=== PATIENT | male | born 1955 | race Caucasian/White ===

== ENCOUNTER 2023-11-10 13:50 | Inpatient (IN) | payer MEDICARE, SELFPAY ==
[2023-11-10] VITALS (10 sets, daily range): BP systolic 98–143; BP diastolic 42–115; BMI 27.9; BMI 29.0
--- NOTE | 2023-11-10 06:03 | ED.GENMED ---
History of Present Illness
General
Chief Complaint: Abdominal Symptoms
Source: patient and spouse
Exam Limitations: none
Time Seen by Provider: 11/10/23 05:57
Travel History
Have you had any contact with someone who has COVID-19?: No
Do you have any symptoms of coronavirus? Fever > 100 degrees, chills, cough, shortness of breath, sore throat, loss of taste or smell, muscle aches, or headache?: No
History of Present Illness
History of Present Illness:
68-year-old male presents with relatively sudden onset of mid upper abdominal discomfort nausea vomiting and diarrhea since about midnight. [place] fine yesterday. Was around children visiting that may have been ill with a GI bug. No unusual food
ingestion. No travel history. No recent antibiotics. Diarrhea about every hour. Watery. No blood or mucus. No radiation of discomfort to the back or chest. No shortness of breath. No chest pain.
Past History
Past History
ED Past Medical History: Hypercholesterolemia
ED Past Surgical History: None
Social History
Tobacco: Non-smoker
Personal:
Review of Systems
Review of Systems
All Other Systems: Not applicable
Constitutional: Denies fever
Cardiac: Reports syncope (Near syncope); Denies chest pain
Phy Exam
Physical Exam
Physical Exam:
GENERAL: Alert and oriented in no apparent distress. Nontoxic but generally weak and appears uncomfortable
EYE: Orbits normal.
NECK: Supple. Nontender
CARDIAC: Regular rate and rhythm without any obvious murmurs.
LUNGS: Clear breath sounds,normal
ABDOMEN: Soft, bowel sounds present. Minimal epigastric tenderness. No rebound or guarding no mass or hernia
NEUROLOGICAL: Alert and oriented , grossly non-focal
SKIN: Warm and dry, no rash or lesion, no discoloration, skin intact.
MUSCULOSKELETAL: No edema,no deformity.Good color
PSYCH: Normal and appropriate interaction..
Course
Orders/Labs/Results
Orders:
Orders
11/10/23 05:18
Electrocardiogram (*1) Urgent
Reason for Study: Abdominal Pain
11/10/23 05:19
EKG- Treatment ONCE
11/10/23 05:52
Complete Blood Count/With Diff Urgent
Comprehensive Metabolic Panel Urgent
Lipase Urgent
11/10/23 06:04
CT Abd/Pel (IV only)-DH only Urgent
Comment:
Reason For Exam: Sudden mid abdominal pain
Cardiac Monitoring- Treatment ONCE
IV Insert/Care/Rem.- Treatment PRN
0.9% Sodium Chloride 1000 ml [Nss] 1,000 ml IV BOLUS
Ondansetron Injectable [Zofran] 4 mg IV NOW STA
Pulse Ox/cont/shift [RESP] Stat
Quantity: 1
11/10/23 06:20
Blood Culture Q30M
ANIKA Source: Blood/Venous
Specimen Description:
11/10/23 07:44
0.9% Sodium Chloride 1000 ml [Nss] 1,000 ml IV BOLUS
11/10/23 10:33
Blood Culture Q30M
ANIKA Source: Blood/Venous
Specimen Description:
Norovirus by PCR Urgent
ANIKA Source: Feces/Stool
Specimen Description:
Date Specimen was Collected: 11/10/23
Time Specimen was Collected: 10:30
STOOL [C difficile Antigen & Toxins] Urgent
ANIKA Source: Feces/Stool
Specimen Description:
Date Specimen was Collected: 11/10/23
Time Specimen was Collected: 10:30
Stool Culture Urgent
ANIKA Source: Feces/Stool
Specimen Description:
Date Specimen was Collected: 11/10/23
Time Specimen was Collected: 10:30
11/10/23 10:57
COVID-19 Antigen Urgent
Source: Nasal Swab
Influenza A+B Rapid Molecular Urgent
ANIKA Source: Nasal Swab
Specimen Description:
Abnormal Lab Results
11/10/23
05:52
WBC 15.7 H 10^3/uL
(4.8-10.8)
MCHC 32.2 L g/dL
(33.0-37.0)
Abs Immat Gran (auto) 0.1 H 10^3/uL
(0-0.05)
Absolute Neuts (auto) 14.6 H 10^3/uL
(1.4-6.5)
Absolute Lymphs (auto) 0.5 L 10^3/uL
(1.2-3.4)
Neutrophils % 92.9 H %
(42.2-75.2)
Lymphocytes % 3.4 L %
(20.5-51.1)
BUN 28 H mg/dl
(9-20)
Creatinine 1.4 H mg/dL
(0.7-1.3)
Glucose 217 H mg/dl
(70-99)
Calcium 10.7 H mg/dl
(8.4-10.2)
Total Protein 9.1 H g/dl
(6.3-8.2)
Albumin 5.2 H g/dl
(3.5-5.0)
11/10/23 05:52
11/10/23 05:52
Vital Signs
Initial and Last Documented VS:
Initial Vital Signs
Pulse Resp BP Pulse Ox
133 18 138/115 99
11/10/23 05:10 11/10/23 05:10 11/10/23 05:10 11/10/23 05:10
Last Documented Vital Signs
Temp Pulse Resp BP Pulse Ox
99.2 F 99 24 98/42 95
11/10/23 05:58 11/10/23 12:45 11/10/23 12:45 11/10/23 11:00 11/10/23 12:15
MDM/Problems Addressed
Differential Diagnosis Includes:
Symptoms most consistent with an acute colitis. Clearly abdominal symptoms. Do not feel this is a cardiac issue. EKG is unremarkable. Workup in progress including labs fluids CT and stool specimen.
*Radiology
Radiology exam reviewed: radiology read reviewed (Acute gastroenteritis/colitis)
*Pulse Oximetry
Patient hypoxic: no
*EKG
Interpreted by ED Provider?: Yes
Interpretation: normal
Comparison EKG: no comparison EKG present
Heart Rate: 87
Rate: normal
Rhythm: sinus
[place]: left axis deviation
Interval: normal interval
QRS Pattern: normal QRS
Ischemia: no ischemia
*Critical Care Note
Total Time (30-74mins, 75-104mins- exclusive of procedures): Not Applicable
Update Note
Update Note:
0740.... Patient rechecked. Nausea is improved. Still feels generally weak. Labs reviewed with patient and spouse. All labs would be expected with his symptoms. All consistent with a colitis/gastroenteritis. We will continue fluids and observe
longer. Patient improved significantly he possibly could be discharged to follow-up. However even if he remains significantly symptomatic he would be admitted.
1215... Patient has been rechecked multiple times. Still feels very weak and uncomfortable. All appears to be a colitis enteritis. Warrants inpatient management
ED Attending Note
-
Portions of this chart may have been created with voice recognition software.� Occasional wrong word or��sound alike� substitutions may have occurred due to the inherent limitations of voice recognition software.
Discharge Plan
Departure
Patient Disposition: Admit
Date of Disposition: 11/10/23
Time of Disposition: 12:16
Presentation/result/management discussed w/ accepting MD/DO: Hospitalist
Discharge Problem:
Colitis/enteritis, Severe general weakness, Mild renal insufficiency
Prescriptions:
No Action
atorvastatin 40 mg Tablet
40 mg PO DAILY
Referrals:
Moshe Harper MD [Family Provider] -
Interventions
Interventions:
*Risk Screen - Suicide Last Done: 11/10/23 05:10
*General Assessment Last Done: 11/10/23 05:28
*Neglect/Abuse Screening Last Done: 11/10/23 05:10
*ED COVID-19 Vaccine History Last Done: 11/10/23 05:28
HK-Ewyywo-Atjhfiaeyl Assessment Last Done: 11/10/23 05:32
Discharge Date and Time
Print Language: MAURITIAN
[2023-11-10 06:05] LABS: % Basophils 0.2 % (0-2); % Eosinophils 0.7 % (0-6); % Immature Granulocytes 0.3 % (0-0.5); % Lymphocytes 3.4 % (20.5-51.1); % Monocytes 2.5 % (1.7-9.3); % Neutrophils 92.9 % (42.2-75.2); Absolute Eosinophils 0.1 10^3/uL (0-0.7); Absolute Immature Granulocytes 0.1 10^3/uL (0-0.05); Absolute Lymphocytes 0.5 10^3/uL (1.2-3.4); Absolute Monocytes 0.4 10^3/uL (0.1-0.6); Absolute Neutrophils 14.6 10^3/uL (1.4-6.5); Hemoglobin 16.4 g/dL (13.0-18.0); Mean Corp Hgb Conc. 32.2 g/dL (33.0-37.0); Mean Corpuscular Volume 83.9 fL (80.0-94.0); Mean Platelet Volume 9.5 fL (7.4-10.4); Nucleated Red Blood Cells % 0 % (-); Platelet Count 353 10^3/uL (130-400); Red Blood Cell Count 6.08 10^6/uL (4.70-6.10); Red Cell Dist. Width 13.9 % (11.5-14.5); White Blood Cell Count 15.7 10^3/uL (4.8-10.8)
[2023-11-10] MEDS: NSS 1000 IV ×3 (06:09→16:38)
[2023-11-10] MEDS: ZOFRAN 4 MG IV (06:09)
[2023-11-10 06:16] LABS: ALT (SGPT) 47 U/L (0-50); AST (SGOT) 36 U/L (17-59); Albumin 5.2 g/dl (3.5-5.0); Alkaline Phosphatase 109 U/L (38-126); Blood Urea Nitrogen 28 mg/dl (9-20); Calcium 10.7 mg/dl (8.4-10.2); Carbon Dioxide 25 mmol/L (22-30); Chloride 100 mmol/L (98-107); Estimated Creatinine Clearance 64 ml/min; Glucose 217 mg/dl (70-99); Potassium 5.1 mmol/L (3.5-5.1); Sodium 140 mmol/L (135-145); Total Bilirubin 1.2 mg/dl (0.2-1.3); Total Protein 9.1 g/dl (6.3-8.2); eGFR 55.43
[2023-11-10 06:54] LABS: Lipase 156 U/L (23-300)
[2023-11-10 11:19] LABS: COVID-19 Antigen Negative (Negative)
--- NOTE | 2023-11-10 13:22 | HPS.HSE ---
Family Physician
-
Family Physician: Moshe Harper
Chief Complaint
-
Intractable nausea, vomiting and diarrhea
History of Present Illness
68-year-old male with history of dyslipidemia who lives independently at home, presented to the hospital complaining of intractable nausea, nonbloody vomiting and diarrhea that started around 2:00 the morning today.
Admitted yesterday that people's over including grandchildren, and even they were shopping outside eventually brought trung from outside and reported at home, anxious he was doing well until 2:00 in the morning when he woke up with recurrent
episodes of the nausea, nonbloody vomiting and diarrhea and crampy abdominal pain, denies any fever or chill, denies any urinary symptoms, no chest pain or shortness of breath or cough or congestion.
No weakness or numbness in extremity, no headache or vision change.
In the ER workup basically CT chronic concerning for gastroenteritis, while there is a leukocytosis and elevated BUN and creatinine and sugar there is no history of diabetes and there is no history in the archive.
He is awake but lethargic able to provide detailed information and his at the bedside.
Medical History
Past Medical History
Past Medical History: Reports Other
Additional Past Medical History:
Past medical history REVIEWED:
Dyslipidemia
Social history: lives with the and apparently, no smoking and occasionally drinks couple of beer and no drug and is independent.
Family history: Reviewed and noncontributory
Past Surgical History: Reports Other
Social History
Unable to obtain full social history at this time due to: Other
Family History
Family History: Other
Allergies / Home Medications
Allergies reflects when Allergies were last updated in [employer].
Home Medications with original date entered in [employer]
Allergy/Medication List:
Allergies
Allergy/AdvReac Type Severity Reaction Status Date / Time
No Known Allergies Allergy Unverified 11/10/23 05:44
Home Medications
atorvastatin 40 mg tablet 40 mg PO DAILY 11/10/23
Review of Systems
-
A 12 point ROS was completed and negative except as noted: Yes
Physical Exam
Vital Signs
Vital Signs
Temp Pulse Resp BP Pulse Ox
99.2 F 99 24 98/42 95
11/10/23 05:58 11/10/23 12:45 11/10/23 12:45 11/10/23 11:00 11/10/23 12:15
Physical exam:
General: Lethargic but alert and oriented x3, not in distress and holds appropriate conversation.
HEENT: No active discharge, ecchymosis or bruising, dry lips, tongue and mucous membrane.
Eyes: No discharge or red conjunctiva, no nystagmus, pupils are reactive and equal
Neck:Supple, no JVD no bruit no goiter.
Respiratory: Normal AP contour and diameter, normal chest wall movement, normal respiratory effort, no respiratory distress,
Lungs: Good air entry bilaterally, no wheezing or rhonchi, no rales or crackles
Heart: S1, S2 regular, normal rate, no added sound.
Gastrointestinal: Positive bowel sounds, soft, mild generalized tenderness no guarding or rigidity or organomegaly
Musculoskeletal: , no chest wall abnormality or tenderness. All joints and extremities have good range of motion, no muscle tenderness or any joint swelling or tenderness.
Extremities: No pitting edema, good peripheral pulses, good range of motion
Skin: Warm and dry, no ulceration, normal color.
Neurological: Awake, alert and oriented x3, cranial no facial droop speech clear and comprehensive, good muscle tone, normal mentation and move extremities
Psychiatric: Normal mood, normal thought and judgment, normal affect,
Physical Exam
General: Other
Laboratory Results
-
11/10/23 05:52
11/10/23 05:52
Laboratory Results
Total Bilirubin 1.2 mg/dl (0.2-1.3) 11/10/23 05:52
AST 36 U/L (17-59) 11/10/23 05:52
ALT 47 U/L (0-50) 11/10/23 05:52
Alkaline Phosphatase 109 U/L (38-126) 11/10/23 05:52
Lipase 156 U/L (23-300) 11/10/23 05:52
CT abdominal and pelvis:
Fluid-filled loops of bowel, most consistent with acute gastroenteritis, without obstruction or perforation. No free fluid or free air.
Mild diverticulosis. No CT evidence for diverticulitis. No findings to suggest cholecystitis or pancreatitis.
Appendix within normal limits.
Incidental findings include a 1 cm lipoma in the distal antrum or first portion of the duodenum, anatomic variant, bilateral hypodense lesions in the kidneys most consistent with cysts.
EKG: Showed normal sinus rhythm rate around 87, OR 202, QTc 418, left axis deviation otherwise no acute finding
Data Reviewed
-
Diagnostic Radiology: Other
Impression/Plan
-
IMPRESSION:
68-year-old male presented with intractable nausea, vomiting and bloody diarrhea concerning for gastroenteritis and food poisoning, no recent antibiotic intake or travel.
Intractable nausea, vomiting and diarrhea, nonbloody likely gastroenteritis and food poisoning
Dehydration
Elevated BUN and creatinine, we do not know the baseline
Elevated blood sugar no history of diabetes
High protein level, possible dehydration will need to recheck if still elevated then may need to work on ruling out other causes including multiple myeloma specialist elevated BUN and creatinine.
Renal cyst
Renal lipoma.
Dyslipidemia
PLAN:
This was concerning for gastroenteritis
Stool sample already collected in the ER for culture and sensitivity
IV fluid aggressively
Full code diet and advance as tolerated
Pain and nausea medication
Recheck lab including liver function test and albumin level
Check A1c to see if there is any material specialist elevated blood sugar.
Recheck protein level and reassess accordingly as mentioned above.
Continue statin
All discussed with the patient and the in detail and expressed understanding
CODE STATUS full code
DVT prophylaxis is Lovenox
[2023-11-10] MEDS: LOVENOX 40 MG SC (16:37)
[2023-11-10] MEDS: FLUSH (NSS) 1 FLUSH IV (16:40)
[2023-11-10] MEDS: TYLENOL 650 MG PO (23:03)
[2023-11-11] MEDS: NSS 1000 IV ×2 (00:51→12:51)
[2023-11-11] MEDS: TYLENOL 650 MG PO ×2 (04:58→12:54)
[2023-11-11 06:16] LABS: % Basophils 0.1 % (0-2); % Immature Granulocytes 0.4 % (0-0.5); % Lymphocytes 9.2 % (20.5-51.1); % Monocytes 4.8 % (1.7-9.3); % Neutrophils 85.5 % (42.2-75.2); Absolute Lymphocytes 0.8 10^3/uL (1.2-3.4); Absolute Monocytes 0.4 10^3/uL (0.1-0.6); Absolute Neutrophils 7.2 10^3/uL (1.4-6.5); Hematocrit 37.1 % (39.0-52.0); Mean Corp Hgb Conc. 32.1 g/dL (33.0-37.0); Mean Corpuscular Hgb 26.8 pg (27.0-31.0); Mean Corpuscular Volume 83.6 fL (80.0-94.0); Mean Platelet Volume 9.4 fL (7.4-10.4); Nucleated Red Blood Cells % 0 % (-); Platelet Count 225 10^3/uL (130-400); Red Blood Cell Count 4.44 10^6/uL (4.70-6.10); Red Cell Dist. Width 14.5 % (11.5-14.5); White Blood Cell Count 8.5 10^3/uL (4.8-10.8)
[2023-11-11 06:33] LABS: Hemoglobin 11.9 g/dL (13.0-18.0)
[2023-11-11 06:45] LABS: ALT (SGPT) 28 U/L (0-50); AST (SGOT) 37 U/L (17-59); Albumin 3.3 g/dl (3.5-5.0); Alkaline Phosphatase 57 U/L (38-126); Blood Urea Nitrogen 32 mg/dl (9-20); Calcium 8.2 mg/dl (8.4-10.2); Carbon Dioxide 22 mmol/L (22-30); Chloride 106 mmol/L (98-107); Direct Bilirubin 0.2 mg/dl (0.0-0.4); Estimated Creatinine Clearance 74 ml/min; Glucose 142 mg/dl (70-99); Magnesium 1.7 mg/dl (1.6-2.3); Potassium 4.1 mmol/L (3.5-5.1); Sodium 134 mmol/L (135-145); Total Bilirubin 1.1 mg/dl (0.2-1.3); Total Protein 6.1 g/dl (6.3-8.2); eGFR > 60.00
[2023-11-11 08:14] VITALS: BP 96/53
[2023-11-11] MEDS: LIPITOR 40 MG PO (08:40)
--- NOTE | 2023-11-11 08:52 | W.PN.HOSP.TC ---
Today's Communication/Plan
-
Advance to low residue diet
Monitor off IV fluids
Probable discharge tomorrow if continued improvement
Assessment / Plan
Assessment / Plan
HPI: 68-year-old male presented with intractable nausea, vomiting and bloody diarrhea concerning for gastroenteritis and food poisoning, no recent antibiotic intake or travel.
#Sepsis secondary to gastroenteritis
#Acute norovirus gastroenteritis
Patient had fever and leukocytosis
Nausea/vomiting resolved
Advance to low residue diet
Monitor off IV fluids
#Leukocytosis
Resolved
#Acute kidney injury
Secondary to dehydration, resolved
Monitor off IV fluids
#Newly diagnosed type 2 diabetes
Will provide dietary education, hemoglobin A1c 6.5
#Hyperlipidemia
Continue statin
DVT prophylaxis�subcu Lovenox
Full code
Physical Exam
General: No acute distress
HEENT: Normocephalic, Atraumatic, EOMI, MMM
Respiratory: Clear to Auscultation bilaterally
Cardiac: Normal S1/S2, Regular Rate and Rhythm
GI: Soft, Nontender, Nondistended, Normal Bowel Sounds
Extremities: No Clubbing, Cyanosis, or Edema
Neuro: Nonfocal/Grossly Intact
Psych: Calm, Cooperative
Derm: No Visible lesions
Anticipated Discharge: Within 24 hours
Subjective/Interval History
-
Date of Service: November 11, 2023
No nausea, no vomiting. Patient tolerated his full liquid diet. No abdominal pain. Patient continues to have diarrhea, improved in frequency. No more blood. He had fever overnight. No chest pain, no shortness of breath.
Objective Data
-
Labs:
Laboratory Results
11/11/23
05:45
WBC 8.5
Hgb 11.9 L D
Hct 37.1 L
Plt Count 225 D
Sodium 134 L
Potassium 4.1
Chloride 106
Carbon Dioxide 22
BUN 32 H
Creatinine 1.2
Glucose 142 H
Calcium 8.2 L D
Total Bilirubin 1.1
AST 37
ALT 28
Alkaline Phosphatase 57
Vital Signs:
Vital Signs
Temp Pulse Resp BP Pulse Ox
98 F 74 15 96/53 94
11/11/23 08:14 11/11/23 08:14 11/11/23 08:14 11/11/23 08:14 11/11/23 08:14
I&O
11/10/23 11/11/23 11/12/23
06:59 06:59 06:59
Intake Total 3120 / 3120
Balance 3120 / 3120
[2023-11-11 09:01] LABS: Glycohemoglobin (HgbA1c) 6.5 % (4.0-5.6)
--- NOTE | 2023-11-11 12:31 | CM ---
Addendum entered by Jaci Stinson RN 11/11/23 16:28:
IMM signed and placed on chart.
Original Note:
Reviewed the chart notes and spoke with the patient and his spouse at the bedside. The patient resides with his spouse in a two story home with one step to enter. The patient reports no DME/VN/SNF. The patient confirmed his pharmacy of choice is
the [facility]. ROBERTO continues to be available to patient/family and is monitoring medical plan for needs at discharge.
Plan: Discharge to home when medically stable. Anticipated no needs.
[2023-11-11 16:13] VITALS: BP 91/53
[2023-11-11] MEDS: LOVENOX 40 MG SC (17:44)
[2023-11-11 22:33] VITALS: BP 120/60
[2023-11-12 05:26] LABS: Hematocrit 35.3 % (39.0-52.0); Hemoglobin 11.5 g/dL (13.0-18.0); Mean Corp Hgb Conc. 32.6 g/dL (33.0-37.0); Mean Corpuscular Volume 82.9 fL (80.0-94.0); Mean Platelet Volume 9.5 fL (7.4-10.4); Platelet Count 207 10^3/uL (130-400); Red Blood Cell Count 4.26 10^6/uL (4.70-6.10); Red Cell Dist. Width 14.3 % (11.5-14.5); White Blood Cell Count 6.4 10^3/uL (4.8-10.8)
[2023-11-12 05:50] LABS: Blood Urea Nitrogen 20 mg/dl (9-20); Calcium 8.1 mg/dl (8.4-10.2); Carbon Dioxide 20 mmol/L (22-30); Chloride 107 mmol/L (98-107); Estimated Creatinine Clearance 89 ml/min; Glucose 104 mg/dl (70-99); Magnesium 1.8 mg/dl (1.6-2.3); Phosphorus 3.2 mg/dl (2.5-4.5); Potassium 4.1 mmol/L (3.5-5.1); Sodium 133 mmol/L (135-145); eGFR > 60.00
[2023-11-12 07:35] VITALS: BP 120/68
--- NOTE | 2023-11-12 08:20 | W.PN.HOSP.TC ---
Addendum entered and electronically signed by Nehemias Maldonado MD 11/12/23 13:50:
Patient also had acute anemia, this was multifactorial, due to acute blood loss from his bloody diarrhea, and dilution from IV fluids.
Original Note:
Today's Communication/Plan
-
Stable for discharge today
Assessment / Plan
Assessment / Plan
HPI: 68-year-old male presented with intractable nausea, vomiting and bloody diarrhea concerning for gastroenteritis and food poisoning, no recent antibiotic intake or travel.
#Sepsis secondary to gastroenteritis
#Acute norovirus gastroenteritis
Patient had fever and leukocytosis
Nausea/vomiting resolved
Tolerating low residue diet, diarrhea improved
Medically stable for discharge today
Follow-up with PCP in 1 week
#Leukocytosis
Resolved
#Acute kidney injury
Secondary to dehydration, resolved
Monitor off IV fluids
#Newly diagnosed type 2 diabetes
Will provide dietary education, hemoglobin A1c 6.5
#Hyperlipidemia
Continue statin
DVT prophylaxis�subcu Lovenox
Full code
Physical Exam
General: No acute distress
HEENT: Normocephalic, Atraumatic, EOMI, MMM
Respiratory: Clear to Auscultation bilaterally
Cardiac: Normal S1/S2, Regular Rate and Rhythm
GI: Soft, Nontender, Nondistended, Normal Bowel Sounds
Extremities: No Clubbing, Cyanosis, or Edema
Neuro: Nonfocal/Grossly Intact
Psych: Calm, Cooperative
Derm: No Visible lesions
Anticipated Discharge: Today
Subjective/Interval History
-
Date of Service: November 12, 2023
Patient reports feeling better. His stools are becoming more solid and decreased in frequency. No abdominal pain. He is tolerating his low residue diet. Fever resolved.
Objective Data
-
Labs:
Laboratory Results
11/12/23
04:09
WBC 6.4
Hgb 11.5 L
Hct 35.3 L
Plt Count 207
Sodium 133 L
Potassium 4.1
Chloride 107
Carbon Dioxide 20 L
BUN 20
Creatinine 1.0
Glucose 104 H
Calcium 8.1 L
Vital Signs:
Vital Signs
Temp Pulse Resp BP Pulse Ox
98.2 F 72 16 120/68 98
11/12/23 07:35 11/12/23 07:35 11/12/23 07:35 11/12/23 07:35 11/12/23 07:35
I&O
11/11/23 11/12/23 11/13/23
06:59 06:59 06:59
Intake Total 3120 / 3120 780 / 780
Balance 3120 / 3120 780 / 780
[2023-11-12] MEDS: LIPITOR 40 MG PO (09:53)
--- NOTE | 2023-11-12 10:20 | W.DCSUMMARY ---
Addendum entered and electronically signed by Nehemias Maldonado MD 11/12/23 13:50:
Patient also had acute anemia, this was multifactorial, due to acute blood loss from his bloody diarrhea, and dilution from IV fluids.
Original Note:
Discharge Summary
Discharge Data
Date of Admission: 11/10/23
Date of Discharge: 11/12/23
-
Pending Results: No
Hospital Course
Discharge diagnosis:
Sepsis
Acute norovirus gastroenteritis
Leukocytosis
Acute kidney injury
Newly diagnosed type 2 diabetes, hemoglobin A1c 6.[address] abdomen and pelvis:
Fluid-filled loops of bowel, most consistent with acute gastroenteritis, without obstruction or perforation. No free fluid or free air.
Mild diverticulosis. No CT evidence for diverticulitis. No findings to suggest cholecystitis or pancreatitis.
Appendix within normal limits.
Incidental findings include a 1 cm lipoma in the distal antrum or first portion of the duodenum, anatomic variant, bilateral hypodense lesions in the kidneys most consistent with cysts.
Hospital course:
68-year-old male with a past medical history of hyperlipidemia and newly diagnosed type 2 diabetes presented with nausea, vomiting, and bloody diarrhea. Patient was found to have sepsis secondary to acute norovirus gastroenteritis. He also had
acute kidney injury secondary to dehydration. His creatinine upon admission was 1.4, and decreased to 1.0 with IV fluids.
Patient received supportive care. He tolerated a full liquid diet. He was then advanced to a low residue diet. He did not have any abdominal pain. He did not have any nausea or vomiting. He did have a fever, which resolved. He did have a
leukocytosis, which also resolved. His bloody diarrhea improved. He no longer had blood. The frequency and amount of diarrhea also improved. He felt remarkably better, was eager for discharge. He is medically stable for discharge. He needs to
follow-up with his primary care doctor in 1 week.
Disposition: Home self-care
Discharge planning: Required 31 minutes
Discharge Plan
-
Patient Disposition: Home (Routine Discharge)
Discharge Diagnosis/Procedures: Norovirus gastroenteritis, acute kidney injury, dehydration
Condition: Good
Diet: Low Residue
Activity: As tolerated
Driving Restrictions: As prior to admission
Activity Restrictions/Additional Instructions:
Please continue to rest, drink plenty of fluids.
Follow-up with your primary care doctor in 1 week.
Instructions: Norovirus (DC)
Referrals:
Moshe Harper MD [Family Provider] - in one week
Prescriptions:
Continued
atorvastatin 40 mg Tablet
40 mg PO DAILY
Discharge Orders:
Discharge Patient (As Directed); Ordered 11/12/23
Ordered By: Nehemias Maldonado
Discharge Date and Time
Discharge Date/Time: 11/12/23 11:58
Print Language: KENYAN
--- NOTE | 2023-11-12 10:35 | CM ---
Reviewed the chart notes. Patient is for discharge to home today with no additional needs being identified at this time. The patient's spouse will provide transportation to home. CM continues to be available to patient/family and is monitoring
medical plan for needs at discharge.
Plan: Discharge to home today.
--- NOTE | 2023-11-12 13:10 | PN.CDI ---
CDI
- -
CDI:
Physician Documentation Request
Admit Date: 11/10/23 13:50
Dear Doctor Do,
Patient admitted with norovirus gastroenteritis.
11/11 PN, '68-year-old male presented with intractable nausea, vomiting and bloody diarrhea concerning for gastroenteritis.'
11/09 Hgb 16.4
11/10 Hgb 11.9
11/11 Hgb 11.5
Please provide in your note the diagnosis associated with the above findings:
Acute blood loss anemia
Insignificant abnormal lab findings
Other
Use of terms such as suspected, likely, concern for, or probable (associated with a specific diagnosis that is being evaluated, monitored, or treated as if it exists) are acceptable and can be coded in the inpatient setting, when documented at the
time of discharge.
Thank you,
Nancy GARCIAN,RN,CCDS
CDI Specialist
Available via [employer] text
Please use your independent medical judgment in providing your response.
== END 2023-11-12 11:58 | disposition home or self-care (01) | DRG 872 ==
LOC: 2 NORTH 13:50
PROVIDERS: Student in an Organized Health Care Education/Training Program; ADMITTING PHYSICIAN Internal Medicine; ATTENDING PHYSICIAN Family Medicine; EMERGENCY PHYSICIAN Emergency Medicine; FAMILY PHYSICIAN Family Medicine
DX: A41.9 Sepsis, unspecified organism (principal); N17.9 Acute kidney failure, unspecified; A08.11 Acute gastroenteropathy due to Norwalk agent; D62 Acute posthemorrhagic anemia; Z11.52 Encounter for screening for COVID-19; E86.0 Dehydration; A05.9 Bacterial foodborne intoxication, unspecified; K57.30 Diverticulosis of large intestine without perforation or abscess without bleeding; E78.00 Pure hypercholesterolemia, unspecified; E11.9 Type 2 diabetes mellitus without complications
CPT/HCPCS: 74177; 80048; 80053; 82248; 83036; 83690; 83735; 84100; 85025; 85027; 87040; 87045; 87046; 87324; 87427; 87449; 87502; 87798; 87811; 93005; 96361; 96374; 99285; Q9967